=== PATIENT | female | born 1950 | race Hispanic/Latino ===

== ENCOUNTER → 2020-03-20 | Outpatient (CLI) | payer OTHER, MEDICARE ==
[~2020-03-20] MED LIST: AEC81 PO; CALC-909 PO; EZET10TA13 PO; FURO40TA5 PO; MELO-108 PO; METF-444 PO; MULT-84 PO; OXYB5TAB15 PO
== END | disposition home or self-care (01) ==
LOC: SHCH 12:36
PROVIDERS: ATTEND Internal Medicine Cardiovascular Disease
DX: R06.00 Dyspnea, unspecified (principal)
CPT/HCPCS: 93306; 93356

== ENCOUNTER → 2020-04-04 | Outpatient (CLI) | payer OTHER, MEDICARE ==
[~2020-04-04] VITALS: Ht 149.9 cm; Wt 75.7 kg
[~2020-04-04] MED LIST changes: +REGADENOSON 0.4 MG/5 ML PF SYG IVP SCH
== END | disposition home or self-care (01) ==
LOC: SHCH 08:55
PROVIDERS: ATTEND Internal Medicine Cardiovascular Disease
DX: R06.00 Dyspnea, unspecified (principal); R07.9 Chest pain, unspecified
CPT/HCPCS: 78452; 93017; 96374; A9500 ×2; J2785

== ENCOUNTER → 2022-05-11 | Day surgery (SDC) | payer OTHER, MEDICARE ==
[2022-05-05 10:37] LABS: BASOPHILS % (AUTO) 0.8 % (0.0-5.0); EOSINOPHILS % (AUTO) 2.9 % (0.0-8.0); HEMATOCRIT 41.1 % (36-48); LYMPHOCYTES % (AUTO) 28.5 % (21.0-51.0); MEAN CORPUSCULAR HGB CONC 32.6 g/dL (32.0-36.0); MEAN CORPUSCULAR VOLUME 98.1 fL (79-99); MONOCYTES % (AUTO) 8.6 % (3.0-13.0); NEUTROPHILS % (AUTO) 58.9 % (40.0-77.0); PLATELET COUNT (AUTO) 201 K/uL (130-400); RED BLOOD CELL COUNT(AUTO) 4.19 MIL/uL (4.00-5.50); RED CELL DISTRIBUTION WIDTH 12.8 % (11.0-15.5); WHITE BLOOD COUNT (AUTO) 7.1 K/uL (4.8-10.8)
[2022-05-06 15:00] VITALS: BP 126/70
[2022-05-11] VITALS (16 sets, daily range): BP systolic 132–160; BP diastolic 63–83
[~2022-05-11] VITALS: Ht 146.1 cm; Wt 74.3 kg
[~2022-05-11] MED LIST changes: +0.9%NACL 1000ML 1,000 ML IV ONE; -AEC81 PO; +DEXAMETHASONE SOD PHOSPHATE 10MG/ML 1ML VIAL ONE; -EZET10TA13 PO; +FENTANYL CITRATE PF 50 MCG/1 ML 2ML VIAL ONE; +GLUC-29 PO; +KETOROLAC 15MG/ML VIAL (15MG/ML) ONE; +LETR2.5T7 PO; +LIDOCAINE PF 100MG/5ML (2%) SYRINGE 5ML ONE; -MELO-108 PO; +MEPERIDINE-PF 25 MG/ML SYG ONE; +MIDAZOLAM HCL 1 MG/ML 2ML VIAL ONE; +ONDANSETRON 4MG INJ ONE; -OXYB5TAB15 PO; +PROPOFOL 10 MG/ML 20ML VIAL IV ONE; -REGADENOSON 0.4 MG/5 ML PF SYG IVP SCH; +SOLI10TA7 PO; +UBID50CA23 PO; +[UNRECOGNIZED DRUG - CODE] IM
[2022-05-11] MEDS: CEFAZOLIN SODIUM 1 GM VIAL IVP SCH ×2 (05:00→10:09)
== END | disposition home or self-care (01) ==
LOC: DAH 05:56
PROVIDERS: ATTEND Orthopaedic Surgery
DX: M65.341 Trigger finger, right ring finger (principal); E11.9 Type 2 diabetes mellitus without complications; Z79.899 Other long term (current) drug therapy; Z79.82 Long term (current) use of aspirin; Z88.8 Allergy status to other drugs, medicaments and biological substances; Z79.84 Long term (current) use of oral hypoglycemic drugs; Z82.49 Family history of ischemic heart disease and other diseases of the circulatory system; Z79.01 Long term (current) use of anticoagulants; Z83.3 Family history of diabetes mellitus; Z80.42 Family history of malignant neoplasm of prostate; Z83.511 Family history of glaucoma; Z98.890 Other specified postprocedural states; Z90.12 Acquired absence of left breast and nipple; Z90.710 Acquired absence of both cervix and uterus; Z98.49 Cataract extraction status, unspecified eye
CPT/HCPCS: 80048; 85025; 87426; 36415; 93005; 26055; 82948 ×2; A6260; A4663; A4649; J3010; J0690; J1100; J7030; J2250; J2704; J2405 ×2; J2175; J1885; A6223; A5120; A4215; A4222; A4221; J2001

== ENCOUNTER → 2025-07-29 | Outpatient (CLI) | payer OTHER, MEDICAID ==
[~2025-07-29] MED LIST changes: -0.9%NACL 1000ML 1,000 ML IV ONE; -DEXAMETHASONE SOD PHOSPHATE 10MG/ML 1ML VIAL ONE; -FENTANYL CITRATE PF 50 MCG/1 ML 2ML VIAL ONE; +IOHEXOL-350 75 ML VIAL IV ONE; -KETOROLAC 15MG/ML VIAL (15MG/ML) ONE; -LIDOCAINE PF 100MG/5ML (2%) SYRINGE 5ML ONE; -MEPERIDINE-PF 25 MG/ML SYG ONE; -MIDAZOLAM HCL 1 MG/ML 2ML VIAL ONE; -ONDANSETRON 4MG INJ ONE; -PROPOFOL 10 MG/ML 20ML VIAL IV ONE; +[UNRECOGNIZED DRUG - CODE] IM; -[UNRECOGNIZED DRUG - CODE] IM
--- NOTE | 2025-07-29 18:40 | HMCIMG ---
EXAM: CT SCAN OF THE ABDOMEN AND PELVIS WITH AND WITHOUT CONTRAST Clinical statement: Lower abdominal pain. STUDY PROTOCOL: CT radiation dose protocol was performed in accordance with the principles of ALARA. A multislice CT scan of the abdomen and pelvis was performed with initial noncontrast images followed by contrast-enhanced images after intravenous contrast administration. Sections were obtained from the diaphragms to the inguinal region. RADIATION DOSE: CTDIvol 30.40 mGy; DLP 1146.80 mGy???cm. CONTRAST: Standard dose of intravenous contrast administered. COMPARISON: None provided. FINDINGS: LUNG BASE: No pleural effusion, lobar collapse, or consolidation in the visualized lung bases. Linear atelectatic bands are present in the left upper lobe, right middle lobe, and bilateral lower lobes. Left breast implant is noted. LIVER: Normal in size, morphology, and attenuation with smooth margins. No focal hepatic lesion or calcification. No intrahepatic or extrahepatic biliary ductal dilatation. Yair hepatis, portal vein, hepatic veins, and inferior vena cava are normal in caliber. GALL BLADDER: Gallbladder demonstrates normal wall thickness and smooth contour. Lumen contains uniform fluid density with multiple small calculi, some of which are gas-containing. No pericholecystic inflammatory fat stranding or adjacent fluid collection. Cystic duct appears normal. PANCREAS: Normal in size, morphology, and attenuation. Main pancreatic duct is not dilated. No peripancreatic fat stranding or fluid collection. SPLEEN: Normal in size, morphology, and homogeneous attenuation. No focal splenic lesion. KIDNEYS: Both kidneys are normal in size, shape, position, and attenuation. No renal mass, nephrolithiasis, or calcification in the collecting systems. No hydronephrosis or other signs of obstructive uropathy. GIT /T/ PERITONEAL CAVITY: Stomach is distended but demonstrates normal wall thickness and configuration; gastroesophageal junction, pylorus, and duodenum are unremarkable. Jejunal and ileal loops are normal in caliber and distribution with preserved wall thickness and mucosal pattern. No CT evidence of acute appendicitis. Rectum and colon are well distended with fecal material without wall thickening or pericolonic fat stranding. Mesenteric fat and omentum are normal. No free intraperitoneal air or free fluid. LYMPHNODES: No pathologically enlarged abdominal or pelvic lymph nodes identified. RETROPERITONEUM: Adrenal glands are normal in morphology and attenuation. Aorta and inferior vena cava are normal in position and caliber with mild atherosclerotic calcifications of the abdominal aorta and bilateral iliac arteries. No retroperitoneal mass or hematoma. PELVIS: Urinary bladder is partially distended with mildly thickened love measuring approximately 5???6 mm. No intraluminal filling defect is seen. Uterus is surgically absent. Nonspecific pelvic calcifications are present. No significant pelvic free fluid. MUSCULOSKELETAL: Bones appear osteopenic. Moderate to severe chronic wedge compression deformities of T8, T9, T12, and L1 with associated sclerosis, most pronounced at L1, resulting in mild kyphotic deformity. Mild anterolisthesis of L4 on L5. No acute fracture or destructive osseous lesion is identified. OTHER: Extra-abdominal and paraspinal soft tissues are unremarkable without focal mass or abnormal fluid collection. IMPRESSION: * Mild bladder wall thickening (5???6 mm) in a partially distended bladder, which may reflect cystitis in the appropriate clinical context. Correlation with urinalysis and clinical symptoms is recommended. * Cholelithiasis with multiple small gallstones, some gas-containing, without CT evidence of acute cholecystitis or biliary obstruction. * Osteopenia with chronic wedge compression deformities of T8, T9, T12, and L1 (most pronounced at L1) and mild kyphotic deformity, as well as mild anterolisthesis of L4 on L5, consistent with chronic degenerative and osteoporotic change. * Mild atherosclerotic calcifications of the abdominal aorta and bilateral iliac arteries, compatible with underlying atherosclerotic vascular disease. * No CT evidence of acute appendicitis, bowel obstruction, or other acute intra-abdominal or pelvic process to clearly account for the reported lower abdominal pain. Management should be guided by clinical evaluation, with consideration of cystitis, biliary disease, or functional/gynecologic/gastrointestinal etiologies as directed by the referring team. /[place]
== END | disposition home or self-care (01) ==
LOC: RAH 08:39
PROVIDERS: ATTEND Internal Medicine Gastroenterology
DX: K80.20 Calculus of gallbladder without cholecystitis without obstruction (principal); N32.89 Other specified disorders of bladder; M48.55XA Collapsed vertebra, not elsewhere classified, thoracolumbar region, initial encounter for fracture; M43.16 Spondylolisthesis, lumbar region; I70.0 Atherosclerosis of aorta; M85.88 Other specified disorders of bone density and structure, other site; R10.30 Lower abdominal pain, unspecified; Z90.710 Acquired absence of both cervix and uterus; Z98.82 Breast implant status
CPT/HCPCS: 74178; Q9967

== ENCOUNTER 2025-08-10 04:42 | Observation (INO) | payer OTHER, MEDICAID ==
[~2025-08-10] VITALS: Ht 144.8 cm; Wt 66.3 kg
--- NOTE | 2025-08-10 04:52 | ERN ---
General Chief Complaint: Abdominal Pain Stated Complaint: LUQ ABDOMINAL PAIN, VOMITING Time Seen by MD: 04:48 History of Present Illness Initial Comments 75-year-old female history of hypertension, hyperlipidemia, breast cancer with metastasis to lungs and other parts of the body here for evaluation of abdominal pain and vomiting. Patient states that she started having abdominal pain and vomiting earlier today. Nonbilious nonbloody. No fever no cough. No diarrhea. Allergies: Coded Allergies: cefdinir (Unverified Allergy, Unknown, RASH, 05/11/22) per patient and her daughter Anum drug allergy is due to patient develops a rash with omnicef clindamycin (Unverified Allergy, Unknown, 05/11/22) patient allergy reaction to clindamycin is a rash montelukast (Unverified Allergy, Unknown, 04/03/20) simvastatin (Unverified Allergy, Unknown, 04/03/20) Home Meds Reported Medications Dicyclomine HCl (Dicyclomine HCl) 10 Mg Capsule, 1 CAP PO BID for irritable bowel symptoms for 30 Days, #90 CAP 0 Refills 08/10/25 Fexofenadine HCl (Fexofenadine HCl) 180 Mg Tablet, 1 TAB PO DAILY for allergy symptoms for 30 Days, #30 TAB 0 Refills 08/10/25 Palbociclib (Ibrance) 75 Mg Capsule, 1 CAP PO DAILY for 21 Days, #21 CAP 0 Refills 08/10/25 Ezetimibe (Ezetimibe) 10 Mg Tablet, 1 TAB PO DAILY for 30 Days, #30 TAB 0 Refills 08/10/25 Pantoprazole Sodium (Pantoprazole Sodium) 40 Mg Tablet.dr, 1 TAB PO DAILY for 30 Days, #30 TAB 0 Refills 08/10/25 Exemestane (Exemestane) 25 Mg Tablet, 1 TAB PO DAILY for 30 Days, #30 TAB 0 Refills 25 Glucosa Conrad 2Kcl/Chondroitin Conrad (Glucosamine & Chondroitin Cap) 1 Each Capsule, 1 EACH PO AM, CAP 05/07/22 Fulvestrant (Fulvestrant) 250 Mg/5 Ml Syringe, 250 MG IM AD, SYRINGE 05/07/22 Solifenacin Succinate (Solifenacin Succinate) 10 Mg Tablet, 10 MG PO AM, TAB 05/07/22 Letrozole (Letrozole) 2.5 Mg Tablet, 2.5 MG PO AM, TAB 05/07/22 Ubidecarenone (Co Q-10) 50 Mg Capsule, 50 MG PO AM, CAP 05/07/22 Multivitamin W/Iron, Minerals (Complete Senior) 1 Each Tablet, 1 EACH PO AM, TAB 07/16/14 Calcium Carbonate/Vitamin D3 (Calcium 600 + Vit D Caplet) 1 Each Tablet, 2 EACH PO AM, TAB 07/16/14 Furosemide (Furosemide) 40 Mg Tablet, 40 MG PO AM, TAB 07/16/14 Metformin HCl (Metformin HCl) 500 Mg Tablet, 500 MG PO AM, TAB 07/16/14 Gastrointestinal/Abdominal: (+) nausea, (+) vomiting, (+) abdominal pain Review of Systems: was completed, & the rest were negative. Physical Exam General Appearance: (+) no apparent distress Orientation: (+) alert, (+) oriented x 3 Eye: bilateral eye normal inspection, bilateral eye PERRL, bilateral eye EOMI Ear, Nose, Throat: (+) hearing grossly normal, (+) normal ENT inspection, (+) moist mucous membraine Neck: (+) normal inspection, (+) supple Respiratory: (+) chest non-tender, (+) lungs clear Heart: (+) regular; (-) murmur Gastrointestinal: (+) soft, (+) non-tender Neurologic/Psychiatric: (+) normal speech, (+) no motor defecits Results Laboratory and Microbiology Lab and Micro Result Laboratory Tests Test 08/10/25 05:04 08/10/25 05:09 08/10/25 06:26 Troponin I High Sensitivity 6 ng/L (4-50) White Blood Count 2.2 K/uL (4.8-10.8) L Red Blood Count 2.75 MIL/uL (4.00-5.50) L Hemoglobin 11.2 g/dL (12.0-16.0) L Hematocrit 31.8 % (36-48) L Mean Corpuscular Volume 115.6 fL (79-99) H Mean Corpuscular Hemoglobin 40.7 pg (27.0-33.0) H Mean Corpuscular Hemoglobin Concent 35.2 g/dL (32.0-36.0) Red Cell Distribution Width 13.4 % (11.0-15.5) Platelet Count 80 K/uL (130-400) L Mean Platelet Volume 11.4 fL (7.5-10.5) H Immature Granulocyte % (Auto) 0.5 % (0-1) Neutrophils (%) (Auto) 57.1 % (40.0-77.0) Lymphocytes (%) (Auto) 36.9 % (21.0-51.0) Monocytes (%) (Auto) 3.7 % (3.0-13.0) Eosinophils (%) (Auto) 0.9 % (0.0-8.0) Basophils (%) (Auto) 0.9 % (0.0-5.0) Neutrophils # (Auto) 1.2 K/uL (1.8-7.7) L Lymphocytes # (Auto) 0.8 K/uL (1.0-4.8) L Monocytes # (Auto) 0.1 K/uL (0.1-1.0) Eosinophils # (Auto) 0.02 K/uL (0.00-0.70) Basophils # (Auto) 0.02 K/uL (0.00-0.20) Absolute Immature Granulocyte (auto 0.01 K/uL (0-1) Segmented Neutrophils % 44 % (40-70) Band Neutrophils % 1 % (0-2) Lymphocytes % (Manual) 49 % (22-44) H Monocytes % (Manual) 2 % (2-9) Eosinophils % (Manual) 1 % (1-6) Basophils % (Manual) 3 % (0-2) H Nucleated Red Blood Cells 0.0 % (0.0-0.19) Differential Comment MANUAL DIFFERENTIAL White Cell Morphology Comment Platelet Morphology Comment See comments Red Blood Cell Morphology ANISO 1+ Sodium Level 140 mmol/L (136-145) Potassium Level 3.7 mmol/L (3.5-5.1) Chloride Level 101 mmol/L (101-111) Carbon Dioxide Level 28 mmol/L (21-32) Blood Urea Nitrogen 13 mg/dL (7-18) Creatinine 1.3 mg/dL (0.5-1.0) H Glomerular Filtration Rate Calc 43 mL/min (>90) Random Glucose 121 mg/dL (70-105) H Lactic Acid Level 1.4 mmol/L (0.8-2.5) Total Calcium 9.6 mg/dL (8.5-10.1) Phosphorus Level 2.8 mg/dL (2.5-4.9) Magnesium Level 2.10 mg/dL (1.80-2.40) Total Bilirubin 0.7 mg/dL (0.2-1.0) Direct Bilirubin 0.2 mg/dL (0.0-0.3) Aspartate Amino Transf (AST/SGOT) 81 U/L (10-37) H Alanine Aminotransferase (ALT/SGPT) 89 U/L (12-78) H Alkaline Phosphatase 86 U/L (50-136) Total Protein 7.8 g/dL (6.0-8.3) Albumin 3.3 g/dL (3.5-5.0) L Lipase 43 U/L (16-77) Urine Color COLORLESS (YELLOW) Urine Appearance CLEAR (CLEAR) Urine pH 7.5 (5.0-8.0) Urine Specific [place] 1.022 (1.001-1.031) Urine Protein NEGATIVE mg/dL (NEGATIVE) Urine Glucose (UA) NEGATIVE mg/dL (NEGATIVE) Urine Ketones 10 mg/dL (NEGATIVE) H Urine Occult Blood NEGATIVE (NEGATIVE) Urine Nitrate NEGATIVE (NEGATIVE) Urine Bilirubin NEGATIVE mg/dL (NEGATIVE) Urine Urobilinogen 0.2 mg/dL (0.2-1.0) Urine Leukocyte Esterase NEGATIVE [place]/uL Labs Reviewed?: Yes EKG/XRAY/US/CT/[place] [address] IMAGING REPORT Signed PATIENT: JESUS PENDLETON MR#: [id number] : 1950 SEX: F AGE: 75 LOCATION: [facility] ORDER 9 STATUS: REG [facility] REPORT#: [id number] SERVICE 7 REASON: sob, h/o lung CA ORDERING PHYSICIAN: SADIE GARCIA MD PROCEDURE: CXR1VW - CHEST 1VW EXAM: CR Chest, single view. CLINICAL HISTORY: Shortness of breath. History of lung cancer. COMPARISON: None FINDINGS: Linear fibrotic band in the left lower lobe. Mild bilateral pulmonary congestion. No pleural effusion or pneumothorax. The cardiomediastinal silhouette is within normal limits. No acute osseous abnormality. IMPRESSION: Linear fibrotic band in the left lower lobe. Mild bilateral pulmonary congestion. /[place] DICTATED BY: BENIGNO MEDLEY Jr., MD DATE: 08/10/25810 ELECTRONICALLY SIGNED BY: BENIGNO MEDLEY Jr., MD DATE: 08/10/25810 CT Scan Comment [facility] [address] [place] [address] IMAGING REPORT Signed PATIENT: JESUS PENDLETON MR#: [id number] : 1950 SEX: F AGE: 75 LOCATION: [facility] ORDER 9 STATUS: REG ER REPORT#: [id number] SERVICE 7 REASON: LUQ abd pain. Hx of lung/breast CA w/ mets ORDERING PHYSICIAN: SADIE GARCIA MD PROCEDURE: ABD PEL W - CT ABDOMEN/PELVIS W/CONTRAST EXAM: CT Abdomen and Pelvis with IV contrast CLINICAL HISTORY: LUQ abdominal pain. History of lung/breast cancer with metastases. TECHNIQUE: Axial computed tomography images of the abdomen and pelvis with intravenous contrast. CONTRAST: with intravenous contrast. COMPARISON: CT abdomen and pelvis dated 07/29/2025. FINDINGS: LUNG BASES: Linear fibrotic bands in the right middle lobe lingula and bilateral lower lobes. No acute infiltrates or effusion. Normal cardiac size. The left breast implant is identified. LIVER: Unremarkable. GALLBLADDER AND BILE DUCTS: Multiple gallbladder calculi measuring 8-10 mm. No biliary ductal dilatation is evident. PANCREAS: Unremarkable. SPLEEN: Unremarkable. ADRENAL GLANDS: Unremarkable. KIDNEYS, URETERS, AND BLADDER: The kidneys appear within normal limits. There is no hydronephrosis or hydroureter. No urinary calculi are seen. Moderately distended urinary bladder with subtle wall thickening, with probable changes of cystitis. Extension of the floor of the diaphragm below the level of the pubic symphysis is probable concerning for a mild cystocele. STOMACH AND BOWEL: Unremarkable appearance of the stomach and bowel. No evidence of bowel obstruction. No evidence suggesting enteritis or colitis. APPENDIX: No evidence of acute appendicitis on CT examination. PERITONEUM: No free fluid. No free air. LYMPH NODES: No lymphadenopathy is evident. REPRODUCTIVE: Post-hysterectomy status. No adnexal mass. VASCULATURE: Atherosclerotic calcifications in the aorta and the iliac arteries. No evidence of abdominal aortic aneurysm. BONES: Degenerative changes in the vertebrae with associated osteopenia and compression fractures of the T9, T10, T12, and L1 vertebrae. Multilevel degenerative facet arthropathy. No aggressive appearing osseous lesion. No acute osseous pathology evident. IMPRESSION: Moderately distended urinary bladder with subtle wall thickening, with probable changes of cystitis. Extension of the floor of the diaphragm below the level of the pubic symphysis, probable concerning for mild cystocele. Cholelithiasis. No evidence of cholecystitis. Post-hysterectomy status. Multilevel compression fractures in the T9, T10, T12, and L1 vertebrae with exaggerated kyphosis at the thoracolumbar region. /[place] DICTATED BY: BENIGNO MEDLEY Jr., MD DATE: 08/10/25817 ELECTRONICALLY SIGNED BY: BENIGNO MEDLEY Jr., MD DATE: 08/10/25817 [facility] MDM: Differential diagnosis: Viral gastroenteritis, nauseousness and vomiting, Rationale: Tests considered and ordered secondary to shared decision making include: labs, ECG and radiology Previous outside records reviewed: Old ER visits. Risk of complication and/or morbidity or mortality of patient management: None Medications-Per medication reconciliation Need for hospitalization: Patient does meet criteria for hospitalization. Need for emergency major/minor surgery: No There are no social concerns with this patient. Prescription drug management Prescriptions will include symptomatic care Patient's prior external medical records from other ER visits were reviewed by me as indicated. Prior testing and results from previous visits were reviewed. Prior tests were taken into account with medical decision making and resource utilization, independent historian/historians were used to obtain complete medical history. I independently interpreted the test that were performed, results were reviewed by me and considered findings on radiology if ordered. Medical management and examination interpretation discussions were had by me with other qualified healthcare professionals as indicated for the patient's care. Patient will be admitted under the care of [facility] ED Course Orders Procedure Category Date Status Time 12 Lead Ekg Tracing- EKG 08/10/25 Complete Technical 04:48 Cbc With Differential LAB 08/10/25 Complete 04:48 Basic Metabolic Panel LAB 08/10/25 Complete 04:48 Hepatic Function Panel LAB 08/10/25 Complete 04:48 Urinalysis Profile LAB 08/10/25 Complete 04:48 Lipase LAB 08/10/25 Complete 04:48 Lactic Acid LAB 08/10/25 Complete 04:48 Chest 1vw RAD 08/10/25 Resulted 04:48 Ct Abdomen/Pelvis CT 08/10/25 Resulted W/Contrast 04:48 Phosphorus LAB 08/10/25 Complete 04:48 Magnesium LAB 08/10/25 Complete 04:48 0.9%Nacl 1000ml (Ns PHA 08/10/25 In Process 1000ml) 05:00 Manual Differential LAB 08/10/25 Complete 05:09 Ondansetron 4mg Inj PHA 08/10/25 Complete (Zofran 4mg Inj) 06:00 Ondansetron 4mg Inj PHA 08/10/25 Complete (Zofran 4mg Inj) 05:45 Troponin I High LAB 08/10/25 Complete Sensitivity 06:36 Morphine 2mg Syg PHA 08/10/25 Complete (Morphine 2mg Syg) 07:00 Pantoprazole 40mg Inj PHA 08/10/25 Complete (Protonix 40mg Inj 08:00 Current Medications Medications (Trade) Dose Ordered Sig/Terence Route PRN Reason Start Time Stop Time Status Last Admin Dose Admin Morphine Sulfate (morPHINE 2MG SYG) 2 mg ONCE ONCE IVP 08/10/25 07:00 08/10/25 07:01 DC 08/10/25 06:55 Ondansetron HCl (zoFRAN 4MG INJ) 4 mg ONCE ONCE IVP 08/10/25 06:00 08/10/25 06:01 DC 08/10/25 05:48 Ondansetron HCl (zoFRAN 4MG INJ) 4 mg STK-MED ONCE .ROUTE 08/10/25 05:45 08/10/25 05:46 DC Pantoprazole Sodium (PROTonix 40MG INJ) 40 mg ONCE ONCE IVP 08/10/25 08:00 08/10/25 08:01 DC 08/10/25 08:10 Sodium Chloride 1,000 ml @ 0 mls/hr Q0M IV 08/10/25 05:00 09/09/25 04:59 08/10/25 05:17 Vital Signs Date Time Temp Pulse Resp B/P (MAP) Pulse Ox O2 Delivery O2 Flow Rate FiO2 08/10/25 07:39 98.8 72 18 174/76 95 Room Air* 0 21 08/10/25 06:31 76 18 159/78 98 Room Air* 0 21 08/10/25 05:19 97.3 71 20 164/79 94 Room Air* 0 08/10/25 04:45 97.3 85 16 140/92 95 Room Air 0 DX & DISP Disposition: Inpatient Decision to Admit Time: 08:58 Departure Impression: Primary Impression: Viral gastroenteritis Additional Impression: Vomiting Condition: Stable Referrals: ALLY COVINGTON MD (PCP) SADIE GARCIA MD Aug 10, 2025 04:52 MELANIE LACEY MD Aug 10, 2025 07:26
--- NOTE | 2025-08-10 05:07 | EKG ---
[facility] Test Date: 2025-08-10 Test Time: 05:04:36 Pat Name: JESUS PENDLETON Department: ED Room: 419 Gender: F [employer]: [id number] : 1950 Requested By: SADIE GARCIA Order Number: [id number] Reading MD: Harshal Lynn Measurements Intervals [place] Rate: 70 P: 32 TX: 176 QRS: -1 QRSD: 92 T: 42 QT: 420 QTc: 453 Interpretive Statements Sinus rhythm Nonspecific T abnrm, anterolateral leads Compared to ECG 05/05/2022 09:19:10 No significant changes Electronically Signed On 08-12-2025 13:06:43 [employer] by Harshal Lynn Please click the below link to view image of tracing.
[2025-08-10] MEDS: 0.9%NACL 1000ML 1,000 ML IV SCH ×2 (05:17→14:36)
[2025-08-10 05:22] LABS: IMMATURE GRANULOCYTE ABSOLUTE 0.01 K/uL (0-1); NUCLEATED RED BLOOD CELLS 0.0 % (0.0-0.19); PLATELET COUNT (AUTO) 80 K/uL (130-400); RED BLOOD CELL COUNT(AUTO) 2.75 MIL/uL (4.00-5.50); RED CELL DISTRIBUTION WIDTH 13.4 % (11.0-15.5); WHITE BLOOD COUNT (AUTO) 2.2 K/uL (4.8-10.8)
[2025-08-10 05:26] LABS: CREATININE 1.3 mg/dL (0.5-1.0); GLOMERULAR FILTR. RATE CALC 43.0 mL/min (>90); GLUCOSE,RANDOM 121.0 mg/dL (70-105); SODIUM SERUM 140.0 mmol/L (136-145); UREA NITROGEN, BLOOD 13.0 mg/dL (7-18)
[2025-08-10 05:30] LABS: ASPARTATE AMINOTRANSFERASE 81.0 U/L (10-37); PHOSPHORUS 2.8 mg/dL (2.5-4.9); TOTAL PROTEIN, SERUM 7.8 g/dL (6.0-8.3)
[2025-08-10 06:13] LABS: BAND NEUTROPHILS % (MANUAL) 1 % (0-2); BASOPHILS % (MANUAL) 3 % (0-2); EOSINOPHILS % (MANUAL) 1 % (1-6); LYMPHOCYTES % (MANUAL) 49 % (22-44); MAN.DIFF COMMENT-IMPRESSION MANUAL DIFFERENTIAL; MONOCYTES % (MANUAL) 2 % (2-9); SEGMENTED NEUTROPHILS % 44 % (40-70)
[2025-08-10 06:56] LABS: APPEARANCE,URINE CLEAR (CLEAR); GLUCOSE, URINE (UA) NEGATIVE (NEGATIVE); LEUKOCYTE ESTERASE ,URINE NEGATIVE Leu/uL (NEGATIVE); NITRATE,URINE NEGATIVE (NEGATIVE); OCCULT BLOOD,URINE NEGATIVE (NEGATIVE)
[2025-08-10 06:57] LABS: ADD UA MICROSCOPIC NO
--- NOTE | 2025-08-10 07:13 | HMCIMG ---
EXAM: CR Chest, single view. CLINICAL HISTORY: Shortness of breath. History of lung cancer. COMPARISON: None FINDINGS: Linear fibrotic band in the left lower lobe. Mild bilateral pulmonary congestion. No pleural effusion or pneumothorax. The cardiomediastinal silhouette is within normal limits. No acute osseous abnormality. IMPRESSION: Linear fibrotic band in the left lower lobe. Mild bilateral pulmonary congestion. /[place]
--- NOTE | 2025-08-10 07:19 | HMCIMG ---
EXAM: CT Abdomen and Pelvis with IV contrast CLINICAL HISTORY: LUQ abdominal pain. History of lung/breast cancer with metastases. TECHNIQUE: Axial computed tomography images of the abdomen and pelvis with intravenous contrast. CONTRAST: with intravenous contrast. COMPARISON: CT abdomen and pelvis dated 07/29/2025. FINDINGS: LUNG BASES: Linear fibrotic bands in the right middle lobe lingula and bilateral lower lobes. No acute infiltrates or effusion. Normal cardiac size. The left breast implant is identified. LIVER: Unremarkable. GALLBLADDER AND BILE DUCTS: Multiple gallbladder calculi measuring 8-10 mm. No biliary ductal dilatation is evident. PANCREAS: Unremarkable. SPLEEN: Unremarkable. ADRENAL GLANDS: Unremarkable. KIDNEYS, URETERS, AND BLADDER: The kidneys appear within normal limits. There is no hydronephrosis or hydroureter. No urinary calculi are seen. Moderately distended urinary bladder with subtle wall thickening, with probable changes of cystitis. Extension of the floor of the diaphragm below the level of the pubic symphysis is probable concerning for a mild cystocele. STOMACH AND BOWEL: Unremarkable appearance of the stomach and bowel. No evidence of bowel obstruction. No evidence suggesting enteritis or colitis. APPENDIX: No evidence of acute appendicitis on CT examination. PERITONEUM: No free fluid. No free air. LYMPH NODES: No lymphadenopathy is evident. REPRODUCTIVE: Post-hysterectomy status. No adnexal mass. VASCULATURE: Atherosclerotic calcifications in the aorta and the iliac arteries. No evidence of abdominal aortic aneurysm. BONES: Degenerative changes in the vertebrae with associated osteopenia and compression fractures of the T9, T10, T12, and L1 vertebrae. Multilevel degenerative facet arthropathy. No aggressive appearing osseous lesion. No acute osseous pathology evident. IMPRESSION: Moderately distended urinary bladder with subtle wall thickening, with probable changes of cystitis. Extension of the floor of the diaphragm below the level of the pubic symphysis, probable concerning for mild cystocele. Cholelithiasis. No evidence of cholecystitis. Post-hysterectomy status. Multilevel compression fractures in the T9, T10, T12, and L1 vertebrae with exaggerated kyphosis at the thoracolumbar region. /[place]
--- NOTE | 2025-08-10 10:12 | HP ---
[facility] HISTORY & PHYSICAL Date Patient Seen: Aug 10, 2025 Time of Visit: 10:12 Supervising Physician: Dr. Go Primary Care Physician: Dr. Renetta Galvez Outpatient Specialists: [ ] Inpatient Consults: [ ] PROBLEM LIST: Acute gastroenteritis Recent complicated cystitis being treated as outpatient with Augmentin Hypertension Hyperlipidemia Metastatic breast cancer currently on chemotherapy HPI: Patient is a 75-year-old female with a past medical history significant for metastatic breast cancer with metastases to the lungs and other parts of the body not specified currently undergoing chemotherapy as well as a recent outpatient diagnosis of complicated cystitis being treated with Augmentin. She reports the ED today after episodes of abdominal pain and associated nausea and vomiting. Patient daughter at bedside states that the patient took one of her Augmentin pills earlier this morning on an empty stomach in the symptoms reported began shortly thereafter. CT scans relatively unremarkable at this time except for possible cystitis secondary to bladder wall thickening. She remains on IV fluid hydration at this time, we will administer GI cocktail, pantoprazole and review morning labs. Plan Follow morning labs Continue with GI cocktail and Zofran PRN Continue IV fluid hydration Restart home medications Anticipate discharge in the next 24-48 hours PAST MEDICAL HX: see above PAST SURGICAL HX: noncontributory SOCIAL HISTORY: No tobacco, ETOH, or illicit drug use Coded Allergies: cefdinir (Unverified Allergy, Unknown, RASH, 05/11/22) per patient and her daughter Anum drug allergy is due to patient develops a rash with omnicef clindamycin (Unverified Allergy, Unknown, 05/11/22) patient allergy reaction to clindamycin is a rash montelukast (Unverified Allergy, Unknown, 04/03/20) simvastatin (Unverified Allergy, Unknown, 04/03/20) REVIEW OF SYSTEMS: 12 point ROS reviewed with patient. Pertinent positives mentioned above. Otherwise negative. PHYSICAL EXAM: GENERAL: alert, weak, awake oriented x 3 HEENT: EOMI, Sclera non icteric, moist mucosa NECK: Supple, no JVD, trachea midline LUNGS: Clear breath sounds bilaterally. No wheezes HEART: Regular rate and rhythm. Normal S1 and S2, without murmurs ABD: Abdomen soft, nontender. Bowel sounds present EXT: No clubbing cyanosis or edema NEURO: Alert and oriented to person, follows commands Vital Signs (last 8hr) Date Time Temp Pulse Resp B/P (MAP) Pulse Ox O2 Delivery O2 Flow Rate FiO2 08/10/25 07:39 98.8 72 18 174/76 95 Room Air* 0 08/10/25 06:31 76 18 159/78 98 Room Air* 0 08/10/25 05:19 97.3 71 20 164/79 94 Room Air* 0 08/10/25 04:45 97.3 85 16 140/92 95 Room Air 0 LABS: Hematology Labs: Test 08/10/25 05:09 Range/Units White Blood Count 2.2 L 4.8-10.8 K/uL Red Blood Count 2.75 L 4.00-5.50 MIL/uL Hemoglobin 11.2 L 12.0-16.0 g/dL Hematocrit 31.8 L 36-48 % Mean Corpuscular Volume 115.6 H 79-99 fL Mean Corpuscular Hemoglobin 40.7 H 27.0-33.0 pg Mean Corpuscular Hemoglobin Concent 35.2 32.0-36.0 g/dL Red Cell Distribution Width 13.4 11.0-15.5 % Platelet Count 80 L 130-400 K/uL Mean Platelet Volume 11.4 H 7.5-10.5 fL Immature Granulocyte % (Auto) 0.5 0-1 % Neutrophils (%) (Auto) 57.1 40.0-77.0 % Lymphocytes (%) (Auto) 36.9 21.0-51.0 % Monocytes (%) (Auto) 3.7 3.0-13.0 % Eosinophils (%) (Auto) 0.9 0.0-8.0 % Basophils (%) (Auto) 0.9 0.0-5.0 % Neutrophils # (Auto) 1.2 L 1.8-7.7 K/uL Lymphocytes # (Auto) 0.8 L 1.0-4.8 K/uL Monocytes # (Auto) 0.1 0.1-1.0 K/uL Eosinophils # (Auto) 0.02 0.00-0.70 K/uL Basophils # (Auto) 0.02 0.00-0.20 K/uL Absolute Immature Granulocyte (auto 0.01 0-1 K/uL Segmented Neutrophils % 44 40-70 % Band Neutrophils % 1 0-2 % Lymphocytes % (Manual) 49 H 22-44 % Monocytes % (Manual) 2 2-9 % Eosinophils % (Manual) 1 1-6 % Basophils % (Manual) 3 H 0-2 % Nucleated Red Blood Cells 0.0 0.0-0.19 % Differential Comment MANUAL DIFFERENTIAL White Cell Morphology Comment Platelet Morphology Comment See comments Red Blood Cell Morphology ANISO 1+ Chemistry Labs: Test 08/10/25 05:09 08/10/25 05:04 Range/Units Sodium Level 140 136-145 mmol/L Potassium Level 3.7 3.5-5.1 mmol/L Chloride Level 101 101-111 mmol/L Carbon Dioxide Level 28 21-32 mmol/L Blood Urea Nitrogen 13 7-18 mg/dL Creatinine 1.3 H 0.5-1.0 mg/dL Glomerular Filtration Rate Calc 43 >90 mL/min Random Glucose 121 H 70-105 mg/dL Lactic Acid Level 1.4 0.8-2.5 mmol/L Total Calcium 9.6 8.5-10.1 mg/dL Phosphorus Level 2.8 2.5-4.9 mg/dL Magnesium Level 2.10 1.80-2.40 mg/dL Total Bilirubin 0.7 0.2-1.0 mg/dL Direct Bilirubin 0.2 0.0-0.3 mg/dL Aspartate Amino Transf (AST/SGOT) 81 H 10-37 U/L Alanine Aminotransferase (ALT/SGPT) 89 H 12-78 U/L Alkaline Phosphatase 86 50-136 U/L Total Protein 7.8 6.0-8.3 g/dL Albumin 3.3 L 3.5-5.0 g/dL Lipase 43 16-77 U/L Troponin I High Sensitivity 6 4-50 ng/L DIAGNOSTICS / RADIOLOGY RESULTS: [ ] PLAN NEURO: Minimize central acting medications as possible. Maintain fall precautions, adequate lighting during the day PULMONARY: Supplemental 02 as needed. Maintain aspiration precautions at all times CARDIOVASCULAR: Follow hemodynamics. Vital signs per facility protocol GI & NUTRITION: Continue with nutritional support. Continue stool softeners and laxatives as needed. KIDNEYS & ELECTROLYTES: Strict monitoring of intake, output and overall fluid balance. Avoid nephrotoxic medications to the extent possible. Medications to be dosed according to renal function. Monitor electrolytes and replace as needed ENDOCRINE: Maintain blood glucose between 100-180 at all times. Hypoglycemia protocol in place INFECTIOUS DISEASE: Trend temperature, WBC and procalcitonin level Follow cultures, deescalate antibiotics as soon as possible. Panculture if new onset fever ONCOLOGY/HEMATOLOGY/COAGULATION: Monitor for s/s of bleeding Monitor hemoglobin, coagulation studies as needed SKIN: Pressure ulcer prevention per facility protocol Specialty mattress ORTHO/REHAB: Continue PT/OT Prophylaxis: Continue GI and DVT prophylaxis Code Status: Full Resuscitation Disposition: TBD Other: Total patient care time exceeds 35 minutes excluding all procedures. SAM HARVEY PAC Aug 10, 2025 10:12
[2025-08-10] MEDS ORDERED: NITROGLYCERIN 0.4 MG SL TAB SL PRN (10:30)
[2025-08-10] MEDS ORDERED: LOPERAMIDE HCL 2 MG CAP PO PRN (10:30)
[2025-08-10] MEDS ORDERED: LACTULOSE 20 GM/30 ML UDCUP PO PRN (10:30)
[2025-08-10] MEDS ORDERED: BENZOCAINE/MENTH/CETYLPYRD CL 1 EACH LOZENGE MM PRN (10:30)
[2025-08-10] MEDS ORDERED: ARTIFICAL TEARS SOL 15 ML OP PRN (10:30)
[2025-08-10] MEDS ORDERED: guaiFENesin-DM 200/20MG 10ML PO PRN (10:30)
[2025-08-10] MEDS ORDERED: MAG/ALUM/SIMETH 30 ML UDCUP PO PRN (10:30)
[2025-08-10] MEDS ORDERED: LIDOCAINE HCL 2% VISCOUS 30 ML, MAG/ALUM/SIMETH 30ML 30 ML, DICYCLOMINE HCL 20 MG PO PRN (10:30)
--- NOTE | 2025-08-10 11:54 | NUR ---
REPORT GIVEN TO ODILON
[2025-08-10 12:00] VITALS: O2SAT 96
[2025-08-10 12:15] VITALS: BP 138/90; PULSE 82; RESP 16; TEMP 98.2
[2025-08-10 16:00] VITALS: BP 150/85; PULSE 91; RESP 16; TEMP 99.8
[2025-08-10] MEDS: DICYCLOMINE HCL 20 MG TAB PO SCH (19:59)
[2025-08-10 20:00] VITALS: BP 106/47; PULSE 92; RESP 18; TEMP 99.4
[2025-08-10] MEDS ORDERED: FAMOTIDINE 20MG TAB PO SCH (21:00)
[2025-08-10] MEDS ORDERED: FAMOTIDINE 20MG VIAL IV SCH (21:00)
[2025-08-11] VITALS: BP 122/55; PULSE 85; RESP 18; TEMP 98.6
[2025-08-11 04:00] VITALS: BP 101/61; PULSE 82; RESP 18; TEMP 98.6
[2025-08-11 06:46] LABS: ASPARTATE AMINOTRANSFERASE 30.0 U/L (10-37); CREATININE 1.3 mg/dL (0.5-1.0); GLOMERULAR FILTR. RATE CALC 43.0 mL/min (>90); GLUCOSE,RANDOM 78.0 mg/dL (70-105); SODIUM SERUM 141.0 mmol/L (136-145); TOTAL PROTEIN, SERUM 6.3 g/dL (6.0-8.3); UREA NITROGEN, BLOOD 12.0 mg/dL (7-18)
[2025-08-11 08:13] VITALS: O2SAT 90
[2025-08-11 08:16] VITALS: BP 134/74; PULSE 89; RESP 16; TEMP 97.3
[2025-08-11] MEDS ORDERED: CA 600MG+VIT D 400 UNIT TAB 1 TAB TABLET PO SCH (09:00)
--- NOTE | 2025-08-11 09:55 | NUR ---
TYLENOL GIVEN FOR H/A. PER PATIENT WILL WAIT ON OTHER PO MEDS UNTIL MD ROUNDS AND CLEARS HER TO EAT
--- NOTE | 2025-08-11 10:12 | PN ---
[facility] PROGRESS NOTE Date Patient Seen: Aug 11, 2025 Time of Visit: 10:12 Supervising Physician: [ ] Primary Care Physician: Dr. Renetta Galvez Outpatient Specialists: [ ] Inpatient Consults: [ ] PROBLEM LIST: Acute gastroenteritis Recent complicated cystitis being treated as outpatient with Augmentin Hypertension Hyperlipidemia Metastatic breast cancer currently on chemotherapy INTERVAL HISTORY: [ ] REVIEW OF SYSTEMS: 12 point ROS reviewed with patient. Pertinent positives mentioned above. Otherwise negative. PHYSICAL EXAM: GENERAL: alert, weak, awake oriented x 3 HEENT: EOMI, Sclera non icteric, moist mucosa NECK: Supple, no JVD, trachea midline LUNGS: Clear breath sounds bilaterally. No wheezes HEART: Regular rate and rhythm. Normal S1 and S2, without murmurs ABD: Abdomen soft, nontender. Bowel sounds present EXT: No clubbing cyanosis or edema NEURO: Alert and oriented to person, follows commands Vital Signs (last 8hr) Date Time Temp Pulse Resp B/P (MAP) Pulse Ox O2 Delivery O2 Flow Rate FiO2 08/11/25 08:16 97.3 89 16 134/74 99 Room Air 08/11/25 08:13 90 Room Air* 0 21 08/11/25 04:00 98.6 82 18 101/61 90 Room Air LABS: Hematology Labs: Test 08/10/25 05:09 Range/Units White Blood Count 2.2 L 4.8-10.8 K/uL Red Blood Count 2.75 L 4.00-5.50 MIL/uL Hemoglobin 11.2 L 12.0-16.0 g/dL Hematocrit 31.8 L 36-48 % Mean Corpuscular Volume 115.6 H 79-99 fL Mean Corpuscular Hemoglobin 40.7 H 27.0-33.0 pg Mean Corpuscular Hemoglobin Concent 35.2 32.0-36.0 g/dL Red Cell Distribution Width 13.4 11.0-15.5 % Platelet Count 80 L 130-400 K/uL Mean Platelet Volume 11.4 H 7.5-10.5 fL Immature Granulocyte % (Auto) 0.5 0-1 % Neutrophils (%) (Auto) 57.1 40.0-77.0 % Lymphocytes (%) (Auto) 36.9 21.0-51.0 % Monocytes (%) (Auto) 3.7 3.0-13.0 % Eosinophils (%) (Auto) 0.9 0.0-8.0 % Basophils (%) (Auto) 0.9 0.0-5.0 % Neutrophils # (Auto) 1.2 L 1.8-7.7 K/uL Lymphocytes # (Auto) 0.8 L 1.0-4.8 K/uL Monocytes # (Auto) 0.1 0.1-1.0 K/uL Eosinophils # (Auto) 0.02 0.00-0.70 K/uL Basophils # (Auto) 0.02 0.00-0.20 K/uL Absolute Immature Granulocyte (auto 0.01 0-1 K/uL Segmented Neutrophils % 44 40-70 % Band Neutrophils % 1 0-2 % Lymphocytes % (Manual) 49 H 22-44 % Monocytes % (Manual) 2 2-9 % Eosinophils % (Manual) 1 1-6 % Basophils % (Manual) 3 H 0-2 % Nucleated Red Blood Cells 0.0 0.0-0.19 % Differential Comment MANUAL DIFFERENTIAL White Cell Morphology Comment Platelet Morphology Comment See comments Red Blood Cell Morphology ANISO 1+ Chemistry Labs: Test 08/11/25 06:11 08/10/25 05:09 08/10/25 05:04 Range/Units Sodium Level 141 136-145 mmol/L Potassium Level 4.2 3.5-5.1 mmol/L Chloride Level 105 101-111 mmol/L Carbon Dioxide Level 30 21-32 mmol/L Blood Urea Nitrogen 12 7-18 mg/dL Creatinine 1.3 H 0.5-1.0 mg/dL Glomerular Filtration Rate Calc 43 >90 mL/min Random Glucose 78 70-105 mg/dL Total Calcium 7.9 L 8.5-10.1 mg/dL Total Bilirubin 0.7 0.2-1.0 mg/dL Aspartate Amino Transf (AST/SGOT) 30 10-37 U/L Alanine Aminotransferase (ALT/SGPT) 53 12-78 U/L Alkaline Phosphatase 59 50-136 U/L Total Protein 6.3 6.0-8.3 g/dL Albumin 2.6 L 3.5-5.0 g/dL Lactic Acid Level 1.4 0.8-2.5 mmol/L Phosphorus Level 2.8 2.5-4.9 mg/dL Magnesium Level 2.10 1.80-2.40 mg/dL Direct Bilirubin 0.2 0.0-0.3 mg/dL Lipase 43 16-77 U/L Troponin I High Sensitivity 6 4-50 ng/L DIAGNOSTICS / RADIOLOGY RESULTS: [ ] PLAN NEURO: Minimize central acting medications as possible. Maintain fall precautions, adequate lighting during the day PULMONARY: Supplemental 02 as needed. Maintain aspiration precautions at all times CARDIOVASCULAR: Follow hemodynamics. Vital signs per facility protocol GI & NUTRITION: Continue with nutritional support. Continue stool softeners and laxatives as needed. KIDNEYS & ELECTROLYTES: Strict monitoring of intake, output and overall fluid balance. Avoid nephrotoxic medications to the extent possible. Medications to be dosed according to renal function. Monitor electrolytes and replace as needed ENDOCRINE: Maintain blood glucose between 100-180 at all times. Hypoglycemia protocol in place INFECTIOUS DISEASE: Trend temperature, WBC and procalcitonin level Follow cultures, deescalate antibiotics as soon as possible. Panculture if new onset fever ONCOLOGY/HEMATOLOGY/COAGULATION: Monitor for s/s of bleeding Monitor hemoglobin, coagulation studies as needed SKIN: Pressure ulcer prevention per facility protocol Specialty mattress ORTHO/REHAB: Continue PT/OT Prophylaxis: Continue GI and DVT prophylaxis Code Status: Full Resuscitation Disposition: TBD Other: Total patient care time exceeds 35 minutes excluding all procedures. SAM HARVEY PAC Aug 11, 2025 10:12
[2025-08-11 11:17] LABS: NUCLEATED RED BLOOD CELLS 0.0 % (0.0-0.19); PLATELET COUNT (AUTO) 65 K/uL (130-400); RED BLOOD CELL COUNT(AUTO) 2.20 MIL/uL (4.00-5.50); RED CELL DISTRIBUTION WIDTH 13.2 % (11.0-15.5); WHITE BLOOD COUNT (AUTO) 2.5 K/uL (4.8-10.8)
[2025-08-11 11:48] VITALS: BP 124/77; PULSE 80; RESP 14; TEMP 97.7
[2025-08-11 12:40] LABS: BAND NEUTROPHILS % (MANUAL) 6 % (0-2); LYMPHOCYTES % (MANUAL) 28 % (22-44); MAN.DIFF COMMENT-IMPRESSION MANUAL DIFFERENTIAL; MONOCYTES % (MANUAL) 1 % (2-9); PLATELET MORPHOLOGY COMMENT DECREASED; SEGMENTED NEUTROPHILS % 65 % (40-70); WBC MORPHOLOGY CONSISTENT W/DIFF
--- NOTE | 2025-08-11 15:36 | DS ---
[facility] DISCHARGE SUMMARY Date Patient Seen: Aug 11, 2025 Time of Visit: 15:36 Supervising Physician: Dr. Go Primary Care Physician: Dr. Renetta Galvez Outpatient Specialists: [ ] Inpatient Consults: [ ] HOSPITAL COURSE: HPI (per admitting provider) Patient is a 75-year-old female with a past medical history significant for metastatic breast cancer with metastases to the lungs and other parts of the body not specified currently undergoing chemotherapy as well as a recent outpatient diagnosis of complicated cystitis being treated with Augmentin. She reports the ED today after episodes of abdominal pain and associated nausea and vomiting. Patient daughter at bedside states that the patient took one of her Augmentin pills earlier this morning on an empty stomach in the symptoms reported began shortly thereafter. CT scans relatively unremarkable at this time except for possible cystitis secondary to bladder wall thickening. She remains on IV fluid hydration at this time, we will administer GI cocktail, pantoprazole and review morning labs. The patient was treated for the following problems: Patient was evaluated on this admission for an episode of acute gastroenteritis likely secondary to taking antibiotic medication on an empty stomach. Patient also remains on chemotherapeutic agents likely responsible for the patient's severe nausea. Medications were held for 24 hours and patient was resuscitated with IV fluid hydration. Prior to discharge patient was initiated on a soft diet and tolerated her food well. No more episodes of nausea or emesis on this admission. She has been discharged with a close follow up with the PCP and recommendations to slowly progress her diet at home as tolerated. 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 PCP notified of patients admission, hospital course and discharge. PHYSICAL EXAM: GENERAL: alert, weak, awake oriented x 3 HEENT: EOMI, Sclera non icteric, moist mucosa NECK: Supple, no JVD, trachea midline LUNGS: Clear breath sounds bilaterally. No wheezes HEART: Regular rate and rhythm. Normal S1 and S2, without murmurs ABD: Abdomen soft, nontender. Bowel sounds present EXT: No clubbing cyanosis or edema NEURO: Alert and oriented to person, follows commands FOLLOW-UP: Follow-up with PCP in 2-3 days RECOMMENDATIONS: See Discharge Instructions Continue all home medications as previously stated This case was seen and discussed with my supervising physician. More than 30 minutes spent on discharge process, including evaluation of the patient, discussion with nursing staff, medication reconciliation and follow-up appointments SAM HARVEY PAC Aug 11, 2025 15:36
--- NOTE | 2025-08-11 16:12 | NUR ---
INITIAL/DCP HOME Met w pt and dtr Anum this afternoon to discuss dcp. EC is dtr Anum Recinos [phone]. PCP is Dr Radha Galvez. Preferred pharmacy is [facility]. Prior to admission pt was living at home w her dtr Anum. 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 She receives 31hrs of provider services thru [facility]. Dtr provides transportation where needed. Discharge goal is to return home.
[2025-08-11 17:05] VITALS: BP 130/64; PULSE 90; RESP 16; TEMP 97.7
--- NOTE | 2025-08-11 18:10 | NUR ---
D/C PAPERWORK PROVIDED AND ACKNOWLEDGED BY PATIENT/DAUGHTER. IV REMOVED
== END 2025-08-11 18:00 | disposition home or self-care (01) ==
LOC: EDH 04:42 → EDHIP 09:45 → INTOOBSV 09:45 → 4CH 12:15
PROVIDERS: ADMIT Internal Medicine Pulmonary Disease; ATTEND Internal Medicine Pulmonary Disease
DX: A08.4 Viral intestinal infection, unspecified (principal); I10 Essential (primary) hypertension; E78.5 Hyperlipidemia, unspecified; C79.9 Secondary malignant neoplasm of unspecified site; C50.919 Malignant neoplasm of unspecified site of unspecified female breast; R21 Rash and other nonspecific skin eruption; Z90.710 Acquired absence of both cervix and uterus; Z79.899 Other long term (current) drug therapy; Z98.890 Other specified postprocedural states
CPT/HCPCS: 96376; 96361 ×2; 96375 ×2; 99285; 80076; 83735; 84100; 84484; 80048; 83690; 85025; 83605; 81003; 36415 ×2; 71045; 74177; 96374; 93005; 80053; 85027; 82948 ×2; 97161; 97116; 97530 ×2; J2270 ×2; J7030; J2405; J2470; G0378 ×3